=== PATIENT | male | born 1945 | race Caucasian/White ===

== ENCOUNTER 2016-11-09 23:30 | Observation (INO) ==
[2016-11-10 00:05] LABS: Basophils % 0.8 % (0.0-0.8); Eosinophils # 0.2 10*3/uL (0.0-0.87); Eosinophils % 3.4 % (0.00-10.9); Hematocrit 40.5 VOL% (42.0-52.0); Hemoglobin 14.5 GM/DL (14.0-18.0); Immature Granulocytes Absolute 0.05 #; Lymphocytes # 1.4 10*3/uL (1.4-4.0); Lymphocytes % 27.8 % (21.2-54.2); Mean Corpuscular HGB Conc 35.8 GM/DL (32-36); Mean Corpuscular Hemoglobin 33 PG (27-34); Mean Platelet Volume 11.8 FL (9.6-12.0); Monocytes # 0.4 10*3/uL (0.11-0.8); Monocytes % 8.7 % (1.7-12.7); Neutrophils % 58.3 % (38.7-73.9); Platelet Count 109 T/CUMM (130-400); Red Blood Count 4.45 MC/CUMM (3.8-5.5); Red Cell Distribution Width 13.1 % (9.3-17.3); White Blood Count 5.1 T/CUMM (4-12)
[2016-11-10 00:30] LABS: Alanine Aminotransferase 25 U/L (16-61); Albumin 3.9 G/DL (3.4-5.0); Alkaline Phosphatase 85 U/L (45-117); Aspartate Amino Transferase 17 U/L (0-37); Bilirubin,Indirect 0.5 MG/DL (0.0-1.0); Blood Urea Nitrogen 18 MG/DL (7-18); Calcium 8.5 MG/DL (8.5-10.1); Glucose 106 MG/DL (74-106); Osmolality,Calculated 280.4 MOS/KG (273-304); Potassium 3.8 MMOL/L (3.5-5.1); Sodium 140 MMOL/L (136-145); Total Protein 7.2 G/DL (6.4-8.3); Troponin I Only < 0.015 NG/ML (0.00-0.045)
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
[2016-11-10] MEDS ORDERED: ONDANSETRON 4 MG/2 ML VIAL IV PRN (01:50)
--- NOTE | 2016-11-10 01:58 | Hospitalist History & Physical ---
Assessment and Plan (1) History of coronary artery disease Status: Acute Current Visit: Yes (2) Hypertension Status: Acute Current Visit: Yes (3) GERD (gastroesophageal reflux disease) Status: Acute Current Visit: Yes (4) Chest pain Status: Acute Assessment and plan: Plan for this patient 1. Admit patient to telemetry 2. Serial troponins 3. Fasting lipid profile 4. Cardiology consult 5. Home meds as appropriate Current Visit: Yes History of Present Illness Chief complaint: Chest pain History of present illness: Mr. Mora is a 71 year old male with past medical history significant for coronary artery disease, hypertension and reflux was in his normal state of health until 3 days ago. Patient started noticing chest pain. Apparently it has been waxing and waning during this time. He told the ER physician that woke him up during his sleep. First he thought it was gas but it would not get any better. Sometimes it sharp sometimes it is a dull squeezing sensation. He has no shortness of breath diaphoresis or nausea. 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 I was consulted to admit him to the emergency room. Home Medications Medication Instructions Recorded Confirmed Type Aspirin 325 mg PO DAILY 11/09/16 11/09/16 History Carvedilol [Coreg] 3.125 mg PO BID 11/09/16 11/09/16 History Finasteride 5 mg PO DAILY 11/09/16 11/09/16 History Irbesartan 150 mg PO DAILY 11/09/16 11/09/16 History Lovastatin 40 mg PO DIRECTED 11/09/16 11/09/16 History Magnesium Chloride [Mag Delay] 70 mg PO DAILY 11/09/16 11/09/16 History Niacin [Slo-Niacin] 500 mg PO DAILY 11/09/16 11/09/16 History Omeprazole 20 mg PO DAILY 11/09/16 11/09/16 History Ubidecarenone [Co Q-10] 100 mg PO DAILY 11/09/16 11/09/16 History Allergies Allergy/AdvReac Type Severity Reaction Status Date / Time Penicillins Allergy Intermediate RASH Verified 11/09/16 23:34 Sulfa (Sulfonamide Allergy Intermediate RASH Verified 11/09/16 23:34 Antibiotics) Medical,Surgical,& Family Hx - Medical History Cardio: History of: Hypertension Endocrine: History of: Dyslipidemia - Surgical History Orthopedic Surgeries: Surgical HX of;: Orthopedic Surgery - Social History Smoking Status: Never smoker Frequency of Alcohol Use: None Type of Drug Use: None 12 point system: reviewed and no additional remarkable complaints except as stated Exam - Constitutional Vitals: Period Temp Pulse Resp BP Sys/Vu Pulse Ox Last 24 Hr 98.5 F-98.5 F 66-66 18-18 161-161/80-80 97 - General General appearance: alert, in no apparent distress - Head Head exam: Present: atraumatic, normocephalic - Eye Eye exam: Present: PERRL, EOMI - ENT ENT exam: Present: mucous membranes moist. Absent: mucous membranes dry - Neck Neck exam: Present: full ROM,. Tracheostomy scar midline - Chest Chest inspection: Present: symmetric chest wall rise - Respiratory Respiratory exam: Present: normal lung sounds bilaterally. - Cardiovascular Cardiovascular exam: Present: regular rate, normal rhythm, normal heart sounds - Abdominal Exam Abdominal exam: Present: soft, normal bowel sounds. - Extremities Exam Extremities exam: Present: full ROM. Absent: pedal edema - Neurological Exam Neurological exam: Present: alert, oriented X3, CN II-XII intact - Psychiatric Psychiatric exam: Present: normal affect, normal mood - Skin Skin exam: Present: warm, dry Results - Labs CBC & BMP: 11/09/16 23:44 11/09/16 23:44
[2016-11-10] MEDS ORDERED: NON-FORMULARY MEDICATION (Lovastatin [Lovastatin] 40 MG) PO SCH (02:00)
[2016-11-10] MEDS ORDERED: SODIUM CHLORIDE 0.45% 1,000 ML IV SCH (02:00)
[2016-11-10 05:53] LABS: Calcium 8.9 MG/DL (8.5-10.1); Magnesium 2.3 MG/DL (1.8-2.4); Osmolality,Calculated 278.5 MOS/KG (273-304); Potassium 4.3 MMOL/L (3.5-5.1)
[2016-11-10] MEDS ORDERED: NITROGLYCERIN 2% OINT 1 INCH/GM PACK TOP SCH (06:00)
[2016-11-10 06:01] LABS: Risk Ratio 4.3; VLDL CHOLESTEROL 23.2 MG/DL
--- NOTE | 2016-11-10 06:40 | EKG Report ---
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
--- NOTE | 2016-11-10 07:23 | XRay Report ---
History: Chest pain Date: 11/10/2016 Study: Chest x-ray PA and lateral Comparison exam: No previous similar study The cardiac silhouette is not enlarged. There is no mediastinal mass. The pulmonary vasculature is not engorged. There is no pleural effusion. There is mild elevation of the right hemidiaphragm which may be related to diaphragmatic eventration. There is some platelike scar or subsegmental atelectasis in the lower lungs. There is no angel consolidated pneumonia. There are old rib fractures bilaterally. There is moderate thoracic spondylosis. Impression: No definite acute process. Mild scarring in the lower lungs PROCEDURE INTERPRETED AT [facility] DEPARTMENT OF RADIOLOGY Final Report Signed by: Dr. Renee Salcido
--- NOTE | 2016-11-10 08:04 | Order Completion Report ---
See report scanned to EMR
[2016-11-10 08:47] LABS: Free T4 (Free Thyroxine) 1.14 NG/DL (0.76-1.46); Thyroid Stimulating Hormone 2.21 uIU/ml (0.358-3.74)
[2016-11-10] MEDS ORDERED: PANTOPRAZOLE 40 MG TABLET PO SCH (09:00)
[2016-11-10] MEDS ORDERED: MAGNESIUM CHLORIDE 64 MG TABLET PO SCH (09:00)
[2016-11-10] MEDS ORDERED: LOVASTATIN 20 MG TABLET PO SCH (09:00)
[2016-11-10] MEDS ORDERED: COENZYME Q10 100 MG CAPSULE PO SCH (09:00)
[2016-11-10] MEDS ORDERED: CARVEDILOL 3.125 MG TABLET PO SCH (09:00)
[2016-11-10] MEDS ORDERED: IRBESARTAN 150 MG TABLET PO SCH (09:00)
[2016-11-10] MEDS ORDERED: FINASTERIDE 5 MG TABLET PO SCH (09:00)
[2016-11-10] MEDS ORDERED: ENOXAPARIN 40 MG/0.4 ML SYRINGE SUBCUT SCH (09:00)
[2016-11-10] MEDS ORDERED: ASPIRIN EC 325 MG TABLET PO SCH (09:00)
[2016-11-10] MEDS ORDERED: NIACIN ER 500 MG TABLET PO SCH (09:00)
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
--- NOTE | 2016-11-10 13:44 | Event Note ---
Patient seen and examined this morning. He reports his pain is improved. His is at the bedside this morning. He reports his regular a r specialist is Dr. Estevez. He is scheduled for treadmill stress test this morning. Further recommendations will depend on his response to therapy.
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
[2016-11-10] MEDS ORDERED: REGADENOSON 0.4 MG/5 ML SYRINGE IV ONE (14:25)
[2016-11-10 16:34] VITALS: BP 133/80
--- NOTE | 2016-11-10 17:40 | Event Note ---
The patient's current perfusion study did not reveal any evidence of ischemia. His echocardiogram is overall unremarkable. This patient is concerned about having coronary disease. Certainly has had some chest pain he has had nondetectable troponins and his ECG is unremarkable. This could be other issues. He will keep his follow with Dr. Estevez and return. I did offer cardiac catheterization but he wanted to wait.
--- NOTE | 2016-11-10 17:42 | Discharge Summary ---
Hospital Course - Hospital Course Hospital Course: Mr. Mora is a 71-year-old white male with past medical history significant for coronary artery disease hypertension and reflux who was in his normal state of health until 3 days ago. Patient started noticing chest pain. Apparently was waxing and waning during this time. He told the ER physician that it woke him up during sleep. First he thought was gas but it would not get any better. Sometimes it was sharp and but it did have a squeezing dull sensation. He claims no shortness of breath diaphoresis or nausea. 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 I admitted the patient to the emergency room. Cardiac enzymes were negative and patient was evaluated by cardiology. He had a stress test with Lexiscan. It was normal. His repeat echo showed no changes. Patient's medicine maximum benefit from this hospitalization he can follow-up with his primary care provider Dr. Valencia as needed. The source of some of his discomfort in fact could be GI. This might be something that he would want to have worked up on an outpatient basis. - Time spent with patient Time with patient DS: Less than 30 minutes Diagnosis - Discharge Diagnosis (1) History of coronary artery disease Status: Acute (2) Hypertension Status: Chronic (3) GERD (gastroesophageal reflux disease) Status: Acute (4) Chest pain Status: Acute Specialty Discharge - Follow Up or Referrals Discharge Plan - Discharge Data Disposition: Disch To Home/Self Care Condition at Discharge: Stable Discharge Diet: advance to your usual diet Activity: resume usual activities as tolerated Hygiene: no restrictions - Discharge Medications Continue Niacin [Slo-Niacin] 500 mg PO DAILY Aspirin 325 mg PO DAILY Magnesium Chloride [Mag Delay] 70 mg PO DAILY Finasteride 5 mg PO DAILY Carvedilol [Coreg] 3.125 mg PO BID Omeprazole 20 mg PO DAILY Irbesartan 150 mg PO DAILY Ubidecarenone [Co Q-10] 100 mg PO DAILY Lovastatin 40 mg PO DIRECTED - Follow Up or Referral - Forms/Instructions Instructions: Chest Pain (ED) Exam - Constitutional Vitals: Period Temp Pulse Resp BP Sys/Vu Pulse Ox Last 24 Hr 96.6 F-98.5 F 59-73 18-20 133-161/74-80 95-99 No change from previous exam Discharge Results Labs on day of discharge: Labs from last 24 hours 11/10/16 11/10/16 11/10/16 07:48 04:59 03:20 WBC RBC Hgb Hct MCV MCH MCHC RDW Plt Count MPV Neut % (Auto) Lymph % (Auto) [place] % (Auto) Eos % (Auto) Baso % (Auto) Neut # (Auto) Lymph # (Auto) [place] # (Auto) Eos # (Auto) Baso # (Auto) Immature Gran % Nucleated RBC % Immature Gran # Nucleated RBCs # Immature Plt Fraction Sodium Potassium Chloride Carbon Dioxide Anion Gap BUN Creatinine GFR Calculation BUN/Creatinine Ratio Glucose Calculated Osmolality Calcium Magnesium Total Bilirubin Direct Bilirubin Indirect Bilirubin AST ALT Alkaline Phosphatase Total Creatine Kinase CK-MB (CK-2) Troponin I < 0.015 < 0.015 Total Protein Albumin Triglycerides Cholesterol LDL Cholesterol VLDL Cholesterol HDL Cholesterol Heart Disease Risk Ratio Lipase Free T4 1.14 TSH 3rd Generation 2.210 11/10/16 11/10/16 11/09/16 03:20 03:20 23:44 WBC RBC Hgb Hct MCV MCH MCHC RDW Plt Count MPV Neut % (Auto) Lymph % (Auto) [place] % (Auto) Eos % (Auto) Baso % (Auto) Neut # (Auto) Lymph # (Auto) [place] # (Auto) Eos # (Auto) Baso # (Auto) Immature Gran % Nucleated RBC % Immature Gran # Nucleated RBCs # Immature Plt Fraction Sodium 139 140 Potassium 4.3 3.8 Chloride 104 106 Carbon Dioxide 28 29 Anion Gap 11.3 8.8 BUN 19 H 18 Creatinine 1.20 1.40 H GFR Calculation 84 69 BUN/Creatinine Ratio 15.00 12.00 Glucose 102 106 Calculated Osmolality 278.5 280.4 Calcium 8.9 8.5 Magnesium 2.3 2.0 Total Bilirubin 0.70 Direct Bilirubin 0.160 Indirect Bilirubin 0.5 AST 17 ALT 25 Alkaline Phosphatase 85 Total Creatine Kinase 103 CK-MB (CK-2) < 1.0 Troponin I < 0.015 Total Protein 7.2 Albumin 3.9 Triglycerides 116 Cholesterol 142 LDL Cholesterol 89.0 VLDL Cholesterol 23.2 HDL Cholesterol 33 L Heart Disease Risk Ratio 4.30 Lipase 180.0 Free T4 TSH 3rd Generation 11/09/16 23:44 WBC 5.1 RBC 4.45 Hgb 14.5 Hct 40.5 L MCV 91.0 MCH 33 MCHC 35.8 RDW 13.1 Plt Count 109 L MPV 11.8 Neut % (Auto) 58.3 Lymph % (Auto) 27.8 [place] % (Auto) 8.7 Eos % (Auto) 3.4 Baso % (Auto) 0.8 Neut # (Auto) 3.0 Lymph # (Auto) 1.4 [place] # (Auto) 0.4 Eos # (Auto) 0.2 Baso # (Auto) 0.0 Immature Gran % 1.0 Nucleated RBC % 0.0 Immature Gran # 0.05 Nucleated RBCs # 0.00 Immature Plt Fraction 0.0 Sodium Potassium Chloride Carbon Dioxide Anion Gap BUN Creatinine GFR Calculation BUN/Creatinine Ratio Glucose Calculated Osmolality Calcium Magnesium Total Bilirubin Direct Bilirubin Indirect Bilirubin AST ALT Alkaline Phosphatase Total Creatine Kinase CK-MB (CK-2) Troponin I Total Protein Albumin Triglycerides Cholesterol LDL Cholesterol VLDL Cholesterol HDL Cholesterol Heart Disease Risk Ratio Lipase Free T4 TSH 3rd Generation DS: Provider Date of admission: 11/10/16 01:50 Primary care physician: . No PCP Attending physician on admission: Nic Amato MD Consults: 11/10/16 01:53 Consult to Physician [CONS] Routine Comment: Consulting Provider: Cardiology - [facility] Consult to Specialist Group: Cardiology When should Consulting Provider be notified: In am Person Notified: Maribel Date Notified: 11/10/16 Time Notified: 07:35 Discharging clinician: Nic Amato MD
--- NOTE | 2016-11-10 23:06 | Order Completion Report ---
See report scanned to EMR
== END 2016-11-10 18:45 | disposition home or self-care (01) ==
LOC: N.ED 23:30 → N.EDINP 23:30 → SUATTDRO 11-10 01:50 → N.TELEN 11-10 02:08
PROVIDERS: ADMIT Internal Medicine; ATTEND Family Medicine

== ENCOUNTER 2020-11-28 16:15 | Inpatient (IN) ==
[2020-11-28] MEDS ORDERED: SODIUM CHLORIDE 0.9% 1,000 ML IV STA (17:51)
[2020-11-28] MEDS ORDERED: VANCOMYCIN INJ 1,000 MG in SODIUM CHLORIDE 0.9% 250 ML IV STA (17:52)
[2020-11-28 18:51] LABS: Basophils % 0.2 % (0.0-0.8); Hematocrit 41.6 VOL% (42.0-52.0); Hemoglobin 14.3 GM/DL (14.0-18.0); Immature Granulocytes % 0.9 %; Immature Granulocytes Absolute 0.17 #; Lymphocytes # 0.3 10*3/uL (1.4-4.0); Lymphocytes % 1.6 % (21.2-54.2); Mean Corpuscular HGB Conc 34.4 GM/DL (32-36); Mean Corpuscular Volume 93.1 FL (87-102); Monocytes % 4.1 % (1.7-12.7); Neutrophils % 93.2 % (38.7-73.9); Platelet Count 116 T/CUMM (130-400); Red Blood Count 4.47 MC/CUMM (3.8-5.5); Red Cell Distribution Width 13.2 % (9.3-17.3); White Blood Count 18.4 T/CUMM (4-12)
[2020-11-28 19:07] LABS: Bilirubin,Urine Negative (Negative); Blood, Urine Negative (Negative); Glucose,Urine (UA) Negative (Negative); Ketones,Urine 20 mg/dL (Negative); Mucus,Urine Few /LPF (Occasional); Nitrite,Urine Negative (Negative); Protein,Urine Negative; RBC,Urine 1 /HPF (0-4); Urine Appearance CLEAR (Clear); Urine Color Yellow (Yellow); Urine Specific Gravity 1.023 (1.001-1.035); Urine Urobilinogen < 2.0 EU/DL (0.2-1.0)
[2020-11-28 19:08] LABS: Bilirubin,Total 1.8 MG/DL (0.20-1.00); Calcium 8.9 MG/DL (8.5-10.1); Osmolality,Calculated 274.1 MOS/KG (273-304); Potassium 4.2 MMOL/L (3.5-5.1); Total Protein 7.1 G/DL (6.4-8.2)
[2020-11-28 19:14] LABS: Band Neutrophils 15 % (0-10); Metamyelocytes 1 %; Segmented Neutrophils 81 % (50-85); Total Cells Counted 100
[2020-11-28 19:15] LABS: Ovalocytes Slight; Platelet Estimate Decreased
[2020-11-28] MEDS ORDERED: GLUCAGON 1 MG VIAL IM PRN (21:50)
[2020-11-28] MEDS ORDERED: DEXTROSE 50% 25 GM/50 ML VIAL IV PRN (21:50)
[2020-11-28] MEDS ORDERED: hydrALAZINE 20 MG/1 ML VIAL IV PRN (22:01)
[2020-11-28] MEDS ORDERED: FAMOTIDINE 20 MG TABLET PO PRN (22:26)
[2020-11-28] MEDS ORDERED: CYCLOBENZAPRINE 10 MG TABLET PO PRN (22:26)
[2020-11-28] MEDS ORDERED: CETIRIZINE 10 MG TABLET PO PRN (22:26)
[2020-11-29] MEDS: CLINDAMYCIN INJ 600 MG/50 ML PREMIX IV SCH ×3 (00:05→16:08)
[2020-11-29] MEDS: SODIUM CHLORIDE 0.9% 1,000 ML IV SCH ×3 (01:43→18:35)
[2020-11-29] MEDS: ACETAMINOPHEN 325 MG TABLET PO PRN (01:52)
[2020-11-29 05:12] LABS: Basophils % 0.3 % (0.0-0.8); Eosinophils # 0.1 10*3/uL (0.0-0.87); Eosinophils % 0.4 % (0.00-10.9); Hematocrit 37.6 VOL% (42.0-52.0); Immature Granulocytes % 0.8 %; Immature Granulocytes Absolute 0.11 #; Lymphocytes # 0.6 10*3/uL (1.4-4.0); Lymphocytes % 4.1 % (21.2-54.2); Mean Corpuscular HGB Conc 34.6 GM/DL (32-36); Mean Corpuscular Volume 93.3 FL (87-102); Mean Platelet Volume 10.9 FL (9.6-12.0); Monocytes % 3.9 % (1.7-12.7); Neutrophils % 90.5 % (38.7-73.9); Red Blood Count 4.03 MC/CUMM (3.8-5.5); Red Cell Distribution Width 13.5 % (9.3-17.3)
[2020-11-29 05:21] LABS: Platelet Count 92 T/CUMM (130-400)
[2020-11-29] MEDS: VANCOMYCIN INJ 1,750 MG in SODIUM CHLORIDE 0.9% 500 ML IV SCH (05:23)
[2020-11-29 05:29] LABS: Albumin 3.2 G/DL (3.4-5.0); Bilirubin,Total 2.8 MG/DL (0.20-1.00); Calcium 8.4 MG/DL (8.5-10.1); Osmolality,Calculated 276.8 MOS/KG (273-304); Potassium 3.6 MMOL/L (3.5-5.1); Risk Ratio 2.2; Total Protein 6.2 G/DL (6.4-8.2); VLDL Cholesterol 16.8 MG/DL
[2020-11-29 05:36] LABS: Anisocytosis 1+; Band Neutrophils 11 % (0-10); Lymphocytes 6 % (20-55); Platelet Estimate Decreased; Segmented Neutrophils 79 % (50-85); Total Cells Counted 100
[2020-11-29] MEDS ORDERED: ENOXAPARIN 40 MG/0.4 ML SYRINGE SUBCUT SCH (09:00)
[2020-11-29] MEDS: LOSARTAN 50 MG TABLET PO SCH (09:31)
[2020-11-29] MEDS: MAGNESIUM CHLORIDE 64 MG TABLET PO SCH ×2 (09:32→21:07)
[2020-11-29] MEDS: carvediloL 3.125 MG TABLET PO SCH ×2 (09:32→21:07)
[2020-11-29] MEDS: amLODIPine 2.5 MG TABLET PO SCH (09:32)
[2020-11-29] MEDS: PANTOPRAZOLE 40 MG TABLET PO SCH (09:32)
[2020-11-29] MEDS: FONDAPARINUX 2.5 MG/0.5 ML SYRINGE SUBCUT SCH (11:29)
[2020-11-29] MEDS: HYDROmorphone 2 MG/1 ML VIAL IV PRN ×2 (14:17→22:25)
[2020-11-29] MEDS: ONDANSETRON 4 MG/2 ML VIAL IV PRN (14:26)
[2020-11-29] MEDS: SIMVASTATIN 10 MG TABLET PO SCH (21:06)
[2020-11-29] MEDS: COENZYME Q10 100 MG CAPSULE PO SCH (21:07)
[2020-11-29] MEDS: ASPIRIN EC 325 MG TABLET PO SCH (21:07)
[2020-11-29] MEDS: FINASTERIDE 5 MG TABLET PO SCH (21:07)
[2020-11-29] MEDS: NIACIN ER 500 MG TABLET PO SCH (21:09)
[2020-11-30] MEDS: CLINDAMYCIN INJ 600 MG/50 ML PREMIX IV SCH ×3 (00:17→15:28)
[2020-11-30] MEDS: ACETAMINOPHEN 325 MG TABLET PO PRN (00:56)
[2020-11-30 05:34] LABS: Basophils % 0.3 % (0.0-0.8); Eosinophils # 0.2 10*3/uL (0.0-0.87); Eosinophils % 2.3 % (0.00-10.9); Hematocrit 34.5 VOL% (42.0-52.0); Hemoglobin 11.7 GM/DL (14.0-18.0); Immature Granulocytes % 0.7 %; Immature Granulocytes Absolute 0.05 #; Lymphocytes # 0.9 10*3/uL (1.4-4.0); Lymphocytes % 11.4 % (21.2-54.2); Mean Corpuscular HGB Conc 33.9 GM/DL (32-36); Mean Platelet Volume 11.3 FL (9.6-12.0); Monocytes % 7.5 % (1.7-12.7); Neutrophils % 77.8 % (38.7-73.9); Red Blood Count 3.63 MC/CUMM (3.8-5.5); Red Cell Distribution Width 13.5 % (9.3-17.3); White Blood Count 7.5 T/CUMM (4-12)
[2020-11-30 05:36] LABS: Platelet Count 84 T/CUMM (130-400)
[2020-11-30] MEDS: SODIUM CHLORIDE 0.9% 1,000 ML IV SCH ×2 (06:00→20:08)
[2020-11-30] MEDS: VANCOMYCIN INJ 1,750 MG in SODIUM CHLORIDE 0.9% 500 ML IV SCH (06:00)
[2020-11-30 06:02] LABS: Calcium 8.1 MG/DL (8.5-10.1); Osmolality,Calculated 277.7 MOS/KG (273-304)
[2020-11-30 06:08] LABS: Hypochromasia Slight; Microcytosis Slight; Platelet Estimate Decreased
[2020-11-30] MEDS: MAGNESIUM CHLORIDE 64 MG TABLET PO SCH ×2 (08:57→21:05)
[2020-11-30] MEDS: PANTOPRAZOLE 40 MG TABLET PO SCH (08:57)
[2020-11-30] MEDS: carvediloL 3.125 MG TABLET PO SCH ×2 (08:57→21:05)
[2020-11-30] MEDS: amLODIPine 2.5 MG TABLET PO SCH (08:57)
[2020-11-30] MEDS: LOSARTAN 50 MG TABLET PO SCH (08:57)
[2020-11-30] MEDS: FONDAPARINUX 2.5 MG/0.5 ML SYRINGE SUBCUT SCH (08:58)
[2020-11-30] MEDS: ONDANSETRON 4 MG/2 ML VIAL IV PRN ×2 (11:50→21:10)
[2020-11-30] MEDS: HYDROmorphone 2 MG/1 ML VIAL IV PRN ×2 (13:10→21:15)
[2020-11-30] MEDS: NIACIN ER 500 MG TABLET PO SCH (21:05)
[2020-11-30] MEDS: COENZYME Q10 100 MG CAPSULE PO SCH (21:05)
[2020-11-30] MEDS: SIMVASTATIN 10 MG TABLET PO SCH (21:05)
[2020-11-30] MEDS: FINASTERIDE 5 MG TABLET PO SCH (21:05)
[2020-11-30] MEDS: ASPIRIN EC 325 MG TABLET PO SCH (21:05)
[2020-11-30] MEDS ORDERED: HYDROCORTISONE 1% CREAM 28 GM TUBE TOP PRN (21:51)
[2020-12-01] MEDS: CLINDAMYCIN INJ 600 MG/50 ML PREMIX IV SCH ×3 (00:05→18:40)
[2020-12-01 06:08] LABS: Calcium 8.5 MG/DL (8.5-10.1); Osmolality,Calculated 276.7 MOS/KG (273-304); Potassium 4.1 MMOL/L (3.5-5.1)
[2020-12-01 06:16] LABS: Basophils % 0.7 % (0.0-0.8); Eosinophils # 0.2 10*3/uL (0.0-0.87); Eosinophils % 3.7 % (0.00-10.9); Hematocrit 37.4 VOL% (42.0-52.0); Hemoglobin 12.1 GM/DL (14.0-18.0); Immature Granulocytes % 0.7 %; Immature Granulocytes Absolute 0.04 #; Lymphocytes # 0.9 10*3/uL (1.4-4.0); Lymphocytes % 17.3 % (21.2-54.2); Mean Corpuscular HGB Conc 32.4 GM/DL (32-36); Mean Corpuscular Volume 98.9 FL (87-102); Mean Platelet Volume 11.5 FL (9.6-12.0); Monocytes % 9.3 % (1.7-12.7); Neutrophils % 68.3 % (38.7-73.9); Red Blood Count 3.78 MC/CUMM (3.8-5.5); Red Cell Distribution Width 13.5 % (9.3-17.3); White Blood Count 5.4 T/CUMM (4-12)
[2020-12-01 06:36] LABS: Platelet Count 93 T/CUMM (130-400)
[2020-12-01] MEDS: MAGNESIUM CHLORIDE 64 MG TABLET PO SCH ×2 (09:48→20:28)
[2020-12-01] MEDS: PANTOPRAZOLE 40 MG TABLET PO SCH (09:49)
[2020-12-01] MEDS: LOSARTAN 50 MG TABLET PO SCH (09:49)
[2020-12-01] MEDS: amLODIPine 2.5 MG TABLET PO SCH (09:49)
[2020-12-01] MEDS: VANCOMYCIN INJ 1,750 MG in SODIUM CHLORIDE 0.9% 500 ML IV SCH (11:30)
[2020-12-01] MEDS: SODIUM CHLORIDE 0.9% 1,000 ML IV SCH ×2 (11:54→19:48)
[2020-12-01] MEDS: ONDANSETRON 4 MG/2 ML VIAL IV PRN (14:00)
[2020-12-01] MEDS: FONDAPARINUX 2.5 MG/0.5 ML SYRINGE SUBCUT SCH (15:18)
[2020-12-01] MEDS: carvediloL 3.125 MG TABLET PO SCH ×2 (15:18→20:31)
[2020-12-01] MEDS: CIPROFLOXACIN INJ 400 MG/200 ML PREMIX IV SCH (18:38)
[2020-12-01] MEDS: COENZYME Q10 100 MG CAPSULE PO SCH (20:29)
[2020-12-01] MEDS: FINASTERIDE 5 MG TABLET PO SCH (20:29)
[2020-12-01] MEDS: ASPIRIN EC 325 MG TABLET PO SCH (20:29)
[2020-12-01] MEDS: SIMVASTATIN 10 MG TABLET PO SCH (20:30)
[2020-12-01] MEDS: NIACIN ER 500 MG TABLET PO SCH (20:31)
[2020-12-01] MEDS: HYDROmorphone 2 MG/1 ML VIAL IV PRN (20:32)
[2020-12-02] MEDS ORDERED: VANCOMYCIN INJ 1,750 MG in SODIUM CHLORIDE 0.9% 500 ML IV SCH (03:00)
[2020-12-02 05:48] LABS: Basophils % 0.6 % (0.0-0.8); Eosinophils # 0.2 10*3/uL (0.0-0.87); Eosinophils % 3.8 % (0.00-10.9); Hematocrit 36.8 VOL% (42.0-52.0); Hemoglobin 12.4 GM/DL (14.0-18.0); Immature Granulocytes % 0.8 %; Immature Granulocytes Absolute 0.04 #; Lymphocytes # 1.1 10*3/uL (1.4-4.0); Lymphocytes % 20.7 % (21.2-54.2); Mean Corpuscular HGB Conc 33.7 GM/DL (32-36); Mean Corpuscular Volume 94.1 FL (87-102); Mean Platelet Volume 11.2 FL (9.6-12.0); Monocytes % 8.3 % (1.7-12.7); Neutrophils % 65.8 % (38.7-73.9); Red Blood Count 3.91 MC/CUMM (3.8-5.5); Red Cell Distribution Width 13.1 % (9.3-17.3); White Blood Count 5.2 T/CUMM (4-12)
[2020-12-02 05:51] LABS: Platelet Count 124 T/CUMM (130-400)
[2020-12-02 06:03] LABS: Calcium 8.8 MG/DL (8.5-10.1); Osmolality,Calculated 282.1 MOS/KG (273-304); Potassium 3.9 MMOL/L (3.5-5.1)
[2020-12-02] MEDS: HYDROmorphone 2 MG/1 ML VIAL IV PRN ×2 (06:23→20:17)
[2020-12-02] MEDS: CIPROFLOXACIN INJ 400 MG/200 ML PREMIX IV SCH (07:58)
[2020-12-02] MEDS: MAGNESIUM CHLORIDE 64 MG TABLET PO SCH ×2 (09:24→20:15)
[2020-12-02] MEDS: FONDAPARINUX 2.5 MG/0.5 ML SYRINGE SUBCUT SCH (09:24)
[2020-12-02] MEDS: LOSARTAN 50 MG TABLET PO SCH (09:24)
[2020-12-02] MEDS: PANTOPRAZOLE 40 MG TABLET PO SCH (09:24)
[2020-12-02] MEDS: amLODIPine 2.5 MG TABLET PO SCH ×2 (09:37→20:15)
[2020-12-02] MEDS: carvediloL 3.125 MG TABLET PO SCH (09:37)
[2020-12-02] MEDS: SODIUM CHLORIDE 0.9% 1,000 ML IV SCH (10:27)
[2020-12-02] MEDS ORDERED: CEFEPIME 2,000 MG in SODIUM CHLORIDE 0.9% 100 ML IV SCH (11:00)
[2020-12-02] MEDS ORDERED: CEFEPIME 1,000 MG in SODIUM CHLORIDE 0.9% 100 ML IV SCH (12:00)
[2020-12-02] MEDS: MEROPENEM 500 MG in SODIUM CHLORIDE 0.9% 100 ML IV SCH (17:25)
[2020-12-02] MEDS: SIMVASTATIN 10 MG TABLET PO SCH (20:15)
[2020-12-02] MEDS: COENZYME Q10 100 MG CAPSULE PO SCH (20:15)
[2020-12-02] MEDS: ASPIRIN CHEW 81 MG TABLET PO SCH (20:15)
[2020-12-02] MEDS: NIACIN ER 500 MG TABLET PO SCH (20:15)
[2020-12-02] MEDS: FINASTERIDE 5 MG TABLET PO SCH (20:15)
[2020-12-03] MEDS: MEROPENEM 500 MG in SODIUM CHLORIDE 0.9% 100 ML IV SCH ×5 (00:35→23:38)
[2020-12-03 05:38] LABS: Basophils # 0.1 10*3/uL (0.0-0.2); Basophils % 1.1 % (0.0-0.8); Eosinophils # 0.2 10*3/uL (0.0-0.87); Hematocrit 35.4 VOL% (42.0-52.0); Hemoglobin 11.8 GM/DL (14.0-18.0); Immature Granulocytes % 1.9 %; Immature Granulocytes Absolute 0.09 #; Lymphocytes # 1.2 10*3/uL (1.4-4.0); Lymphocytes % 24.7 % (21.2-54.2); Mean Corpuscular HGB Conc 33.3 GM/DL (32-36); Mean Corpuscular Volume 95.2 FL (87-102); Mean Platelet Volume 11.1 FL (9.6-12.0); Monocytes % 7.4 % (1.7-12.7); Neutrophils % 60.9 % (38.7-73.9); Platelet Count 134 T/CUMM (130-400); Red Blood Count 3.72 MC/CUMM (3.8-5.5); White Blood Count 4.7 T/CUMM (4-12)
[2020-12-03 06:05] LABS: Calcium 8.8 MG/DL (8.5-10.1); Osmolality,Calculated 277.4 MOS/KG (273-304); Potassium 3.8 MMOL/L (3.5-5.1)
[2020-12-03] MEDS: FONDAPARINUX 2.5 MG/0.5 ML SYRINGE SUBCUT SCH (08:57)
[2020-12-03] MEDS: MAGNESIUM CHLORIDE 64 MG TABLET PO SCH ×2 (08:57→21:32)
[2020-12-03] MEDS: PANTOPRAZOLE 40 MG TABLET PO SCH (08:57)
[2020-12-03] MEDS: LOSARTAN 50 MG TABLET PO SCH (08:57)
[2020-12-03] MEDS: ONDANSETRON 4 MG/2 ML VIAL IV PRN (09:01)
[2020-12-03] MEDS ORDERED: MEROPENEM 500 MG in SODIUM CHLORIDE 0.9% 100 ML IV SCH (12:00)
[2020-12-03] MEDS: HYDROmorphone 2 MG/1 ML VIAL IV PRN (19:05)
[2020-12-03] MEDS: NIACIN ER 500 MG TABLET PO SCH (21:31)
[2020-12-03] MEDS: SIMVASTATIN 10 MG TABLET PO SCH (21:32)
[2020-12-03] MEDS: amLODIPine 2.5 MG TABLET PO SCH (21:32)
[2020-12-03] MEDS: ASPIRIN CHEW 81 MG TABLET PO SCH (21:32)
[2020-12-03] MEDS: FINASTERIDE 5 MG TABLET PO SCH (21:32)
[2020-12-03] MEDS: COENZYME Q10 100 MG CAPSULE PO SCH (21:32)
[2020-12-04] MEDS: MEROPENEM 500 MG in SODIUM CHLORIDE 0.9% 100 ML IV SCH ×2 (05:49→11:57)
[2020-12-04 05:53] LABS: Basophils # 0.1 10*3/uL (0.0-0.2); Eosinophils # 0.2 10*3/uL (0.0-0.87); Eosinophils % 3.2 % (0.00-10.9); Hematocrit 34.7 VOL% (42.0-52.0); Hemoglobin 11.9 GM/DL (14.0-18.0); Immature Granulocytes % 3.4 %; Lymphocytes # 1.4 10*3/uL (1.4-4.0); Lymphocytes % 22.9 % (21.2-54.2); Mean Corpuscular HGB Conc 34.3 GM/DL (32-36); Mean Corpuscular Volume 94.3 FL (87-102); Monocytes % 7.5 % (1.7-12.7); Platelet Count 140 T/CUMM (130-400); Red Blood Count 3.68 MC/CUMM (3.8-5.5); Red Cell Distribution Width 13.1 % (9.3-17.3); White Blood Count 5.9 T/CUMM (4-12)
[2020-12-04 06:16] LABS: Calcium 8.7 MG/DL (8.5-10.1); Osmolality,Calculated 279.3 MOS/KG (273-304); Potassium 3.7 MMOL/L (3.5-5.1)
[2020-12-04 06:53] LABS: Eosinophils 3 % (0-10); Hypochromasia Slight; Lymphocytes 13 % (20-55); Microcytosis Slight; Platelet Estimate Adequate; Segmented Neutrophils 79 % (50-85); Total Cells Counted 100
[2020-12-04] MEDS: FONDAPARINUX 2.5 MG/0.5 ML SYRINGE SUBCUT SCH (09:14)
[2020-12-04] MEDS: PANTOPRAZOLE 40 MG TABLET PO SCH (09:14)
[2020-12-04] MEDS: LOSARTAN 50 MG TABLET PO SCH (09:14)
[2020-12-04] MEDS: MAGNESIUM CHLORIDE 64 MG TABLET PO SCH (09:14)
[2020-12-04 12:18] VITALS: BP 178/84
== END 2020-12-04 13:35 | disposition home health service (06) | DRG 863 ==
LOC: N.ED 16:15 → SUATTDRO 21:50 → N.EDINP 21:50 → N.3E 11-29 00:59
PROVIDERS: ADMIT Internal Medicine; ATTEND Internal Medicine